=== PATIENT | female | born 1955 | race Caucasian/White ===

== ENCOUNTER 2023-12-10 11:06 | Emergency (ER) | payer MEDICARE ==
[~2023-12-10] VITALS: Ht 165.1 cm; Wt 63.5 kg
[2023-12-10 11:44] VITALS: BP 94/35; PULSE 76; RESP 17; O2SAT 94
[2023-12-10 11:55] LABS: BASOPHILS # (AUTO) 0.01 K/uL (0.00-0.20); BASOPHILS % (AUTO) 0.3 % (0.0-5.0); EOSINOPHILS # (AUTO) 0.36 K/uL (0.00-0.70); EOSINOPHILS % (AUTO) 9.9 % (0.0-8.0); HEMATOCRIT 30.7 % (36-48); IMMATURE GRANULOCYTE ABSOLUTE 0.01 K/uL (0-1); LYMPHOCYTES # (AUTO) 0.5 K/uL (1.0-4.8); LYMPHOCYTES % (AUTO) 14.9 % (21.0-51.0); MEAN CORPUSCULAR HEMOGLOBIN 28.3 pg (27.0-33.0); MEAN CORPUSCULAR HGB CONC 32.2 g/dL (32.0-36.0); MEAN CORPUSCULAR VOLUME 87.7 fL (79-99); MONOCYTES # (AUTO) 0.5 K/uL (0.1-1.0); MONOCYTES % (AUTO) 13.8 % (3.0-13.0); NEUTROPHILS # (AUTO) 2.2 K/uL (1.8-7.7); NEUTROPHILS % (AUTO) 60.8 % (40.0-77.0); PLATELET COUNT (AUTO) 79 K/uL (130-400); RED CELL DISTRIBUTION WIDTH 19.1 % (11.0-15.5); WHITE BLOOD COUNT (AUTO) 3.6 K/uL (4.8-10.8)
[2023-12-10 11:59] LABS: RAPID GROUP A STREP negative (NEGATIVE)
[2023-12-10 12:02] LABS: SARS-CoV-2, RNA, NAAT NEGATIVE SARS CoV-2 (NEGATIVE)
[2023-12-10 12:08] LABS: CREATININE 0.7 mg/dL (0.5-1.5)
[2023-12-10 12:09] LABS: INFLUENZA TYPE A Negative For Type A (NEGATIVE); INFLUENZA TYPE B Negative For Type B (NEGATIVE)
[2023-12-10] MEDS ORDERED: LEVO-70 PO (13:07)
[2023-12-10] MEDS ORDERED: BUDE90AE IH (13:07)
[2023-12-10] MEDS ORDERED: BENZ-39 PO (13:07)
[2023-12-10] MEDS: SOLU-MEDROL 125MG VIAL IVP ONE (13:15)
[2023-12-10] MEDS: LEVOFLOXACIN 500 MG TABLET PO SCH (13:15)
== END 2023-12-10 13:33 | disposition home or self-care (01) ==
LOC: EDH 11:06
DX: J20.8 Acute bronchitis due to other specified organisms (principal); C90.00 Multiple myeloma not having achieved remission; D64.9 Anemia, unspecified; I10 Essential (primary) hypertension; Z20.822 Contact with and (suspected) exposure to COVID-19; Z98.890 Other specified postprocedural states
CPT/HCPCS: 99284; 96374; 71045; 87635; 80048; 85025; 87040 ×2; 87880; 87804 ×2; 83605; 36415; J2930